=== PATIENT | female | born 1960 | race Two or more races ===

== ENCOUNTER 2017-01-25 23:01 | Emergency (ER) | payer OTHER | END 2017-01-26 00:51 | disposition home or self-care (01) | DX: S82.832A Other fracture of upper and lower end of left fibula, initial encounter for closed fracture (principal); W01.0XXA Fall on same level from slipping, tripping and stumbling without subsequent striking against object, initial encounter; Y92.008 Other place in unspecified non-institutional (private) residence as the place of occurrence of the external cause; I10 Essential (primary) hypertension; E11.9 Type 2 diabetes mellitus without complications ==

== ENCOUNTER 2024-01-25 17:21 | Emergency (ER) | payer OTHER ==
[2024-01-25 17:52] VITALS: BP 145/79; O2SAT 97
--- NOTE | 2024-01-25 19:17 | XRAY Report ---
PROCEDURE: Ankle 3+V RT INDICATIONS: Trauma TECHNIQUE: 3 views of the ankle were acquired. COMPARISON: None. FINDINGS: Bones: Cortical irregularity and lucency in the medial malleolus likely reflects nondisplaced fractu re. No definite intra-articular extension. Ankle mortise is normally aligned. No suspicious bony les ions. Plantar calcaneal enthesophyte. Soft tissues: No tibiotalar joint effusion. Achilles tendon appears normal. Soft tissue swelling o f the ankle IMPRESSION: Query nondisplaced medial malleolus fracture. No definite intra-articular extension. Reviewed by: Carmen Crouch MD on 01/25/2024 6:16 PM VANDANA Approved by: Carmen Crouch MD on 01/25/2024 6:16 PM VANDANA Station ID: [id number]
--- NOTE | 2024-01-25 19:31 | ED Physician Documentation ---
PD HPI LOWER EXT INJURY - Stated complaint Stated Complaint: R ANKLE INJ - Chief complaint Chief Complaint: Trauma Ext - Additional information Additional information: 63-year-old female presents emergency department for right ankle pain after a fall down 3 stairs Saturday. Patient says that she has been icing taking Aleve [id number] but she is feeling a lot of pain to the medial portion of her ankle with any ambulation or any weightbearing activity. There is a significant amount of bruising and swelling to the left lower extremity patient declines hitting her head and says overall her pain is well-controlled as long as she is not ambulating on it. PD PAST MEDICAL HISTORY - Past Medical History Past Medical History: Yes Cardiovascular: Hypertension, High cholesterol Endocrine/Autoimmune: Type 2 diabetes - Past Surgical History Past Surgical History: Yes /[employer]: Hysterectomy - Present Medications Home Medications: Ambulatory Orders Medication Instructions Recorded Confirmed Amlodipine Besylate [Norvasc] 10 mg PO DAILY 01/25/24 01/25/24 Empagliflozin [Jardiance] 25 mg PO DAILY 01/25/24 01/25/24 Losartan [Cozaar] 50 mg PO DAILY 01/25/24 01/25/24 Metformin HCl 1,000 mg PO DAILY 01/25/24 01/25/24 - Allergies Allergies/Adverse Reactions: Allergies Allergy/AdvReac Type Severity Reaction Status Date / Time No Known Drug Allergies Allergy Verified 01/25/24 17:48 - Social History Does the pt smoke?: No Smoking Status: Never smoker Does the pt drink ETOH?: No Does the pt have substance abuse?: No - Immunizations Immunizations are current?: Yes PD ED PE NORMAL - Vitals Vital signs reviewed: Yes - General General: Alert and oriented X 3, No acute distress, Well developed/nourished - HEENT HEENT: Atraumatic, PERRL - Respiratory Respiratory: No respiratory distress - Derm Derm: Other (Significant left lower extremity bruising from solis down to foot) - Extremities Extremities: Other - Free text exam Free text exam: Left lower extremity. Significant bruising starts around mid solis area and spreads down circumferentially to the left foot. Patient has tenderness with palpation to the medial malleolus. Able to flex and extend left ankle with flexion there is tenderness to the medial malleolus. Strong dorsalis pedis pulses, CMS intact. Results - Vitals Vitals: Vital Signs - 24 hr 01/25/24 17:43 Temperature 36.7 C Heart Rate 92 Respiratory 16 Rate Blood Pressure 145/79 H O2 Saturation 97 Oxygen O2 Source Room air - Rads (name of study) Left ankle x-rays Relevant Findings:: Final report received, EMP independent interpretation of test, Other (Nondisplaced medial malleolus fracture) PD Medical Decision Making - ED course ED course: 63-year-old female presents emergency department for left ankle pain. X-rays confirm that she has an isolated medial malleolus fracture, Patient has no proximal fibula pain. She is placed in a short leg walking boot and was told to not ambulate on the ankle until she is able to follow-up with Ortho. She is given Ortho contact information told to contact them early next week for further evaluation. Patient was offered pain medications but ultimately declined she said that Tylenol and Aleve is not working well for her. She said that she already has crutches at home. All questions answered safe for discharge. Departure - Departure Disposition: Home, Self Care Clinical Impression: Medial malleolar fracture Qualifiers: Encounter type: initial encounter Fracture type: closed Fracture alignment: nondisplaced Laterality: right Qualified Code(s): S82.54XA - Nondisplaced fracture of medial malleolus of right tibia, initial encounter for closed fracture Condition: Stable Instructions: Fx Ankle Follow-Up: Jayesh Walls MD [Provider Admit Priv/Credential] - Comments: You for trusting us with your care. We have found that you have a medial malleolus fracture. Please follow-up with Ortho sometime next week for further evaluation of this. We have placed you in a walking boot continues to crutches and for now advise you to be nonweightbearing until you are able to follow-up with Ortho for further evaluation. Ice for 20 minutes at a time 1 hour off and alternate between 1000 mg of Tylenol every 8 hours for pain and discomfort elevate above your heart when sleeping. Forms: PCP List Discharge Date/Time: 01/25/24 19:45
[2024-01-25] MEDS: ACETAMINOPHEN 325 MG TABLET PO STA (20:03)
== END 2024-01-25 19:45 | disposition home or self-care (01) ==
LOC: ED 17:21
DX: S82.54XA Nondisplaced fracture of medial malleolus of right tibia, initial encounter for closed fracture (principal); W10.9XXA Fall (on) (from) unspecified stairs and steps, initial encounter
CPT/HCPCS: 73610; 99283; 99284; A9270

== ENCOUNTER 2024-01-30 07:45 | Outpatient (CLI) | payer OTHER ==
--- NOTE | 2024-01-30 15:21 | XRAY Report ---
PROCEDURE: Ankle 3 View RT INDICATIONS: RIGHT ANKLE PAIN TECHNIQUE: 3 views of the ankle were acquired. COMPARISON: Ankle x-ray 01/25/2024 FINDINGS: Bones: Stable appearance of mild malleolus fracture with minimal appearance of increased diastases b etween fracture fragments. Ankle mortise is normally aligned. No suspicious bony lesions. Calcanea l spur is present. Soft tissues: Mild ankle effusion. Achilles tendon appears normal. IMPRESSION: Minimal increased diastases of medial malleolus fracture fragments. Reviewed by: Dora Canas MD on 01/30/2024 3:20 PM PDT Approved by: Dora Canas MD on 01/30/2024 3:20 PM PDT Station ID: [id number]
== END 2024-01-30 23:59 | disposition home or self-care (01) ==
LOC: DI.WOS 07:45
PROVIDERS: ATTEND Orthopaedic Surgery
DX: S82.51XA Displaced fracture of medial malleolus of right tibia, initial encounter for closed fracture (principal)

== ENCOUNTER 2024-02-18 07:35 | Outpatient (CLI) | payer OTHER ==
--- NOTE | 2024-02-18 16:09 | XRAY Report ---
PROCEDURE: Ankle 3 View RT INDICATIONS: RIGHT ANKLE FRACTURE TECHNIQUE: 3 views of the ankle were acquired. COMPARISON: Left ankle radiograph on January 30, 2016 and prior. FINDINGS: Bones: Redemonstration of mildly displaced, comminuted fracture of the medial malleolus. No signific ant callus formation. Fracture plane demonstrates increased conspicuity. Stable alignment with congru ent ankle mortise on weightbearing view. No suspicious bony lesions. Soft tissues: Small tibiotalar joint effusion. Achilles tendon appears normal. Mild diffuse edema. Small plantar calcaneal enthesophyte. IMPRESSION: 1.Redemonstration of mildly displaced, comminuted fracture of the medial malleolus with no significan t callus formation. Fracture planes demonstrates increased conspicuity. Attention on follow-up. 2.Stable alignment with congruent ankle mortise on weightbearing view. Reviewed by: Jean Pierre Champion MD on 02/18/2024 4:08 PM PDT Approved by: Jean Pierre Champion MD on 02/18/2024 4:08 PM PDT Station ID: [id number]
== END 2024-02-18 23:59 | disposition home or self-care (01) ==
LOC: DI.WOS 07:35
PROVIDERS: ATTEND Orthopaedic Surgery
DX: S82.51XD Displaced fracture of medial malleolus of right tibia, subsequent encounter for closed fracture with routine healing (principal)

== ENCOUNTER 2024-03-30 08:22 | Outpatient (CLI) | payer OTHER ==
--- NOTE | 2024-03-31 01:09 | XRAY Report ---
PROCEDURE: Ankle 3+V RT INDICATIONS: FRACTURE OF MEDIAL MALLEOLUS OF RIGHT TIBIA TECHNIQUE: 3 views of the ankle were acquired. COMPARISON: None FINDINGS: Bones: Large calcaneal spur present. Nondisplaced fracture through the medial malleolus again noted with interval remodeling and bridging callus. Ankle mortise is maintained Soft tissues: Unremarkable without significant soft tissue swelling. No radiopaque foreign body. IMPRESSION: Healing medial malleolar fracture Reviewed by: Yunior Keller MD on 03/31/2024 12:08 AM [facility]ANDANA Approved by: Yunior Keller MD on 03/31/2024 12:08 AM VANDANA Station ID: [id number]
== END 2024-03-30 08:23 | disposition home or self-care (01) ==
LOC: DI 08:22
PROVIDERS: ATTEND Orthopaedic Surgery
DX: S82.54XD Nondisplaced fracture of medial malleolus of right tibia, subsequent encounter for closed fracture with routine healing (principal)